=== PATIENT | female | born 1955 | race Caucasian/White ===

== ENCOUNTER 2020-02-12 16:50 | Inpatient (IN) | payer MEDICARE, OTHER ==
[~2020-02-12] VITALS: Ht 162.6 cm; Wt 62.1 kg
[2020-02-12] MEDS ORDERED: LORAZEPAM 1 MG TABLET PO PRN (17:30)
[2020-02-12] MEDS ORDERED: ACETAMINOPHEN 325 MG TABLET PO PRN (17:30)
[2020-02-12] MEDS ORDERED: MAGNESIUM HYDROXIDE 30 ML LIQUID UDC PO PRN ×2 (17:30→18:45)
--- NOTE | 2020-02-12 17:47 | NUR ---
pt transfered to [facility] in stable condition.
[2020-02-12 18:00] VITALS: BP 144/77
[2020-02-12] MEDS ORDERED: MAGN400O6 PO (18:07)
[2020-02-12] MEDS ORDERED: LISI-603 PO (18:07)
[2020-02-12] MEDS ORDERED: AMLO10TA7 PO (18:07)
[2020-02-12] MEDS ORDERED: ALPR1TAB2 PO (18:07)
[2020-02-12] MEDS ORDERED: NICO-672 TD (18:07)
[2020-02-12] MEDS ORDERED: MORP30TA59 PO (18:07)
[2020-02-12] MEDS ORDERED: PENT400T17 PO (18:07)
[2020-02-12] MEDS ORDERED: MELO-107 PO (18:07)
[2020-02-12] MEDS ORDERED: ZOLP5TAB8 PO (18:07)
[2020-02-12] MEDS ORDERED: INSU100V10 SQ (18:07)
[2020-02-12] MEDS ORDERED: DOXE50CA4 PO (18:07)
[2020-02-12] MEDS ORDERED: MORP15TA7 PO (18:07)
[2020-02-12] MEDS ORDERED: CYCL5TAB PO (18:07)
[2020-02-12] MEDS ORDERED: LORA-259 PO (18:07)
[2020-02-12] MEDS ORDERED: AMIT25TA9 PO (18:07)
[2020-02-12] MEDS ORDERED: FURO40TA5 PO (18:07)
--- NOTE | 2020-02-12 18:25 | NUR ---
ADMITTING THIS 64Y F PATIENT BROUGHT IN BY ER NURSE VIA WHEELCHAIR, PATIENT APPEARS TO HAVE FLAT AFFECT HOWEVER COOPERATES WITH THE ADMISSION, PATIENT MINIMIZES HER SYMPTOMS, PATIENT HAS A VALID HOLD FOR DTS UP ON FEB 14, 235, PATIENT WAS ADVISED ON HER HOLD, ORIENTED ON THE UNIT POLICY AND WAS ASSISTED TO HER ROOM, ON FACE TO FACE EVAL, PATIENT APPEARS DEPRESS, FLAT AFFECT, CALLED AND SPOKE WITH DR. TIMMONS WITH ORDERS MADE AND CARRIED OUT, WILL CONTINUE MONITOR
[2020-02-12] MEDS ORDERED: DEXTROSE 50% 50 ML DISP.SYRIN IV PRN (18:45)
[2020-02-12 20:34] VITALS: BP 145/76
[2020-02-12] MEDS ORDERED: MORPHINE SULFATE SR 15 MG TABLET.SA PO SCH (21:00)
[2020-02-12] MEDS: BLOOD SUGAR DIAGNOSTIC 1 EACH STRIP VI SCH (21:06)
[2020-02-12] MEDS: AMITRIPTYLINE HCL 25 MG TABLET PO SCH (21:08)
[2020-02-12] MEDS: INSULIN REGULAR, HUMAN 300 UNIT/3 ML VIAL SQ PRN (21:08)
[2020-02-13 07:01] LABS: CREATININE 0.9 mg/dL (0.6-1.3); POTASSIUM 4.4 mmol/L (3.5-5.1)
[2020-02-13] MEDS: BLOOD SUGAR DIAGNOSTIC 1 EACH STRIP VI SCH ×4 (08:20→21:18)
[2020-02-13 08:46] VITALS: BP 148/78
[2020-02-13] MEDS ORDERED: NICOTINE 14 MG/24HR PATCH TD SCH (09:00)
[2020-02-13] MEDS: FUROSEMIDE 40 MG TABLET PO SCH (09:30)
[2020-02-13] MEDS: LISINOPRIL 20 MG TABLET PO SCH (09:30)
[2020-02-13] MEDS: DULOXETINE 30 MG CAPSULE.DR PO SCH (09:30)
[2020-02-13] MEDS: AMLODIPINE 10 MG TABLET PO SCH (09:30)
[2020-02-13] MEDS: PENTOXIFYLLINE 400 MG TABLET.SA PO SCH ×3 (09:30→16:41)
[2020-02-13] MEDS: NICOTINE 14 MG/24HR PATCH TD SCH (09:31)
[2020-02-13] MEDS: MELOXICAM 7.5 MG TABLET PO SCH (09:32)
--- NOTE | 2020-02-13 10:30 | NUR ---
Gps/Template Clerk- Pacing around back and forth the hallway, complained of lower back pain, encouraged to rest in bed. Making her needs known to the staff.
[2020-02-13] MEDS: MORPHINE SULFATE IR 30 MG TABLET PO PRN ×2 (10:51→21:18)
--- NOTE | 2020-02-13 10:57 | NUR ---
CHRISTOPHER Initial Discharge Plan: Patient lives at home by herself, [address], [place] [address] ([phone]). Patient has a friend Gale ([phone]) who is involved in her care. Patient would like to go home at time of discharge. CHRISTOPHER will continue to work with patient, family, and MD to ensure a safe and proper discharge plan.
--- NOTE | 2020-02-13 10:58 | NUR ---
CHRISTOPHER Family Contact: CHRISTOPHER called patient's friend Gale ([phone]) who is involved in her care to collected collateral information however no answer and left a message for a return call.
--- NOTE | 2020-02-13 11:49 | NUR ---
Firearms Report: Assistant Operator completed and submitted a [employer] firearms report for 5150 danger to herself certification. A copy of report has been placed in patient chart.
[2020-02-13 12:50] LABS: *BILIRUBIN,URIN NEGATIVE (NEGATIVE); *BLOOD, URINE NEGATIVE (NEGATIVE); *CLARITY,URINE SLIGHTLY CLOUDY (CLEAR); *COLOR,URINE YELLOW (YELLOW); *KETONES,URINE NEGATIVE (NEGATIVE); *UROBILINOGEN,URINE 0.2 E.U./dl (NORMAL); LEUKOCYTE ESTERASE ,URINE TRACE (NEGATIVE); NITRITE, URINE NEGATIVE (NEGATIVE); UGLUCOSE NEGATIVE (NEGATIVE)
--- NOTE | 2020-02-13 14:20 | NUR ---
CHRISTOPHER Family Contact: SW spoke with patient's friend Gale ([phone]) who is involved in her care and collected collateral information. Gale state that she is the patient's friend and her caregiver through [facility] and she lives [address]. Gale helps the patient with her doctor's appointments, grocery shopping, etc. Gale stated she will curing pickling packer the patient and take her home at time of discharge.
[2020-02-13 15:00] VITALS: BP 128/76
[2020-02-13] MEDS: HALOPERIDOL 2 MG TABLET PO SCH (16:41)
[2020-02-13 16:46] LABS: BACTERIA,URINE FEW /HPF (NONE SEEN); RBC,URINE 0-3 /HPF (0-3); SQUAMOUS EPITHELIAL CELL,UR FEW /HPF (NONE SEEN)
[2020-02-13] MEDS: INSULIN REGULAR, HUMAN 300 UNIT/3 ML VIAL SQ PRN (17:14)
--- NOTE | 2020-02-13 18:01 | NUR ---
Gps/Vp Organizational Development-Complained of lower back pain, offered tylenol 650 mg, po ,refused, pt claimed not good for her liver. Pain level tolerable , will wait for next dose of morphine per pt.
[2020-02-13 20:00] VITALS: BP 122/71
[2020-02-13] MEDS: AMITRIPTYLINE HCL 25 MG TABLET PO SCH (21:17)
[2020-02-13] MEDS: TEMAZEPAM 7.5 MG CAPSULE PO PRN (23:08)
[2020-02-14] MEDS: BLOOD SUGAR DIAGNOSTIC 1 EACH STRIP VI SCH ×4 (06:03→20:11)
--- NOTE | 2020-02-14 06:12 | NUR ---
Patient slept on and off last night. At one point patient asked to sleep in Erendira chair because the roommate was "Snoring like a freight train going up a hill". Many requests made for pain medications during the shift. Drug seeking behavior noted. No acute pain or distress at this time. Continuing to monitor.
[2020-02-14 07:30] VITALS: BP 118/64
[2020-02-14] MEDS: HALOPERIDOL 2 MG TABLET PO SCH ×2 (09:14→16:51)
[2020-02-14] MEDS: DULOXETINE 30 MG CAPSULE.DR PO SCH (09:14)
[2020-02-14] MEDS: LISINOPRIL 20 MG TABLET PO SCH (09:14)
[2020-02-14] MEDS: FUROSEMIDE 40 MG TABLET PO SCH (09:15)
[2020-02-14] MEDS: PENTOXIFYLLINE 400 MG TABLET.SA PO SCH ×3 (09:15→16:51)
[2020-02-14] MEDS: AMLODIPINE 10 MG TABLET PO SCH (09:15)
[2020-02-14] MEDS: MELOXICAM 7.5 MG TABLET PO SCH (09:15)
[2020-02-14] MEDS: NICOTINE 14 MG/24HR PATCH TD SCH (09:16)
[2020-02-14] MEDS: MORPHINE SULFATE IR 30 MG TABLET PO PRN (11:18)
[2020-02-14] MEDS: INSULIN REGULAR, HUMAN 300 UNIT/3 ML VIAL SQ PRN ×2 (11:22→16:50)
[2020-02-14] MEDS: CEphaleXIN 500 MG CAPSULE PO SCH ×2 (11:26→20:25)
--- NOTE | 2020-02-14 14:40 | NUR ---
CHRISTOPHER Family Contact: SW received a call from patient's friend Gale ([phone]) who had questions about the PC Hearing process. She also mentioned that she arranged for granddaughter to live with the patient in her apartment to help take care of her and the landlord is okay with it.
[2020-02-14 16:00] VITALS: BP 124/68
[2020-02-14] MEDS: AMITRIPTYLINE HCL 25 MG TABLET PO SCH (20:01)
[2020-02-14 20:11] VITALS: BP 116/63
[2020-02-15] MEDS: MORPHINE SULFATE IR 30 MG TABLET PO PRN (03:48)
[2020-02-15] MEDS: BLOOD SUGAR DIAGNOSTIC 1 EACH STRIP VI SCH ×4 (06:33→20:20)
[2020-02-15 07:30] VITALS: BP 131/67
[2020-02-15] MEDS: CEphaleXIN 500 MG CAPSULE PO SCH ×2 (08:49→16:41)
[2020-02-15] MEDS: DULOXETINE 30 MG CAPSULE.DR PO SCH (08:49)
[2020-02-15] MEDS: HALOPERIDOL 2 MG TABLET PO SCH ×2 (08:49→16:41)
[2020-02-15] MEDS: MELOXICAM 7.5 MG TABLET PO SCH (08:50)
[2020-02-15] MEDS: FUROSEMIDE 40 MG TABLET PO SCH (08:50)
[2020-02-15] MEDS: AMLODIPINE 10 MG TABLET PO SCH (08:51)
[2020-02-15] MEDS: LISINOPRIL 20 MG TABLET PO SCH (08:51)
[2020-02-15] MEDS: PENTOXIFYLLINE 400 MG TABLET.SA PO SCH ×3 (08:52→16:42)
[2020-02-15] MEDS: NICOTINE 14 MG/24HR PATCH TD SCH (08:52)
[2020-02-15] MEDS: INSULIN REGULAR, HUMAN 300 UNITS/3 ML VIAL SQ PRN (08:54)
[2020-02-15 16:00] VITALS: BP 98/60
[2020-02-15] MEDS: INSULIN REGULAR, HUMAN 300 UNIT/3 ML VIAL SQ PRN (17:29)
[2020-02-15] MEDS: AMITRIPTYLINE HCL 25 MG TABLET PO SCH (20:14)
[2020-02-15 20:31] VITALS: BP 123/59
[2020-02-16] MEDS: MORPHINE SULFATE IR 30 MG TABLET PO PRN ×2 (00:09→20:05)
[2020-02-16] MEDS: BLOOD SUGAR DIAGNOSTIC 1 EACH STRIP VI SCH ×4 (06:17→20:05)
--- NOTE | 2020-02-16 06:22 | NUR ---
GPS/RN: SLEPT 4.0 HOURS. Medicated once with Morphine with relief. No further complaint presented. FBS 139mg/dl. Denies any s/s of hypo/hyperglycemia.
[2020-02-16 07:30] VITALS: BP 123/68
[2020-02-16] MEDS: MELOXICAM 7.5 MG TABLET PO SCH (08:52)
[2020-02-16] MEDS: FUROSEMIDE 40 MG TABLET PO SCH (08:52)
[2020-02-16] MEDS: NICOTINE 14 MG/24HR PATCH TD SCH (08:52)
[2020-02-16] MEDS: DULOXETINE 30 MG CAPSULE.DR PO SCH (08:53)
[2020-02-16] MEDS: AMLODIPINE 10 MG TABLET PO SCH (08:53)
[2020-02-16] MEDS: PENTOXIFYLLINE 400 MG TABLET.SA PO SCH ×3 (08:53→17:03)
[2020-02-16] MEDS: HALOPERIDOL 2 MG TABLET PO SCH ×2 (08:53→17:02)
[2020-02-16] MEDS: LISINOPRIL 20 MG TABLET PO SCH (08:53)
[2020-02-16] MEDS: CEphaleXIN 500 MG CAPSULE PO SCH ×2 (08:54→17:02)
[2020-02-16] MEDS: INSULIN REGULAR, HUMAN 300 UNIT/3 ML VIAL SQ PRN ×2 (12:34→20:16)
[2020-02-16 17:05] VITALS: BP 136/63
[2020-02-16 20:30] VITALS: BP 133/66
[2020-02-16] MEDS: AMITRIPTYLINE HCL 25 MG TABLET PO SCH (20:36)
[2020-02-16] MEDS: TEMAZEPAM 7.5 MG CAPSULE PO PRN (21:50)
[2020-02-16] MEDS: MAG HYDROX/AL HYDROX/SIMETH 30 ML LIQUID UDC PO PRN ×2 (21:59→22:07)
[2020-02-17] MEDS ORDERED: CLONAZEPAM 0.5 MG TABLET PO ONE (01:00)
[2020-02-17] MEDS: BLOOD SUGAR DIAGNOSTIC 1 EACH STRIP VI SCH ×4 (06:15→21:30)
[2020-02-17 07:30] VITALS: BP 121/64
[2020-02-17] MEDS: CEphaleXIN 500 MG CAPSULE PO SCH ×2 (08:31→17:31)
[2020-02-17] MEDS: AMLODIPINE 10 MG TABLET PO SCH (08:31)
[2020-02-17] MEDS: MELOXICAM 7.5 MG TABLET PO SCH (08:31)
[2020-02-17] MEDS: NICOTINE 14 MG/24HR PATCH TD SCH (08:31)
[2020-02-17] MEDS: HALOPERIDOL 2 MG TABLET PO SCH ×2 (08:32→17:31)
[2020-02-17] MEDS: PENTOXIFYLLINE 400 MG TABLET.SA PO SCH ×3 (08:32→17:31)
[2020-02-17] MEDS: LISINOPRIL 20 MG TABLET PO SCH (08:32)
[2020-02-17] MEDS: FUROSEMIDE 40 MG TABLET PO SCH (08:32)
[2020-02-17] MEDS: DULOXETINE 30 MG CAPSULE.DR PO SCH (08:33)
[2020-02-17 15:59] VITALS: BP 145/70
--- NOTE | 2020-02-17 16:07 | NUR ---
CHRISTOPHER Collateral Contact: CHRISTOPHER received a call from patient's friend Gale ([phone]) who had questions about the PC Hearing process. CHRISTOPHER explained the process and clarified questions friend had regarding pts 14 day hold. CHRISTOPHER informed her that at this a PC hearing has not been scheduled for pt.
[2020-02-17 20:22] VITALS: BP 128/64
[2020-02-17] MEDS: LORAZEPAM 1 MG TABLET PO PRN (20:51)
[2020-02-17] MEDS: AMITRIPTYLINE HCL 25 MG TABLET PO SCH (20:52)
[2020-02-17] MEDS: INSULIN REGULAR, HUMAN 300 UNIT/3 ML VIAL SQ PRN (21:33)
[2020-02-17] MEDS: TEMAZEPAM 7.5 MG CAPSULE PO PRN (23:47)
[2020-02-18] MEDS: MORPHINE SULFATE IR 30 MG TABLET PO PRN ×2 (04:12→21:23)
[2020-02-18] MEDS: BLOOD SUGAR DIAGNOSTIC 1 EACH STRIP VI SCH ×4 (06:37→20:32)
[2020-02-18] MEDS: LISINOPRIL 20 MG TABLET PO SCH (08:57)
[2020-02-18] MEDS: CEphaleXIN 500 MG CAPSULE PO SCH ×2 (08:57→16:50)
[2020-02-18] MEDS: NICOTINE 14 MG/24HR PATCH TD SCH (08:57)
[2020-02-18] MEDS: AMLODIPINE 10 MG TABLET PO SCH (08:57)
[2020-02-18] MEDS: PENTOXIFYLLINE 400 MG TABLET.SA PO SCH ×3 (08:58→16:49)
[2020-02-18] MEDS: FUROSEMIDE 40 MG TABLET PO SCH (08:58)
[2020-02-18] MEDS: MELOXICAM 7.5 MG TABLET PO SCH (08:58)
[2020-02-18] MEDS: SERTRALINE HCL 50 MG TABLET PO SCH (09:32)
[2020-02-18 10:51] VITALS: BP 149/73
[2020-02-18] MEDS: INSULIN REGULAR, HUMAN 300 UNIT/3 ML VIAL SQ PRN ×2 (12:27→16:52)
[2020-02-18 16:38] VITALS: BP 101/59
--- NOTE | 2020-02-18 20:00 | NUR ---
Received patient in the day room. she is noted A/O x 3 able to ambulate with steady gait and unable to verbalized feelings. pt noted calm and pleasant upon approached. Mood is low, affect is Bunted. Upon interview, pt denied SI/HI/VH/AH. she is able to CFS. Pt is reassured for her safety. safety and fall precaution in place. v/s stable, Will continue to monitor.
[2020-02-18 20:12] VITALS: BP 101/61
[2020-02-18] MEDS: OLANZAPINE 5 MG TABLET PO SCH (20:28)
[2020-02-18] MEDS: AMITRIPTYLINE HCL 25 MG TABLET PO SCH (20:30)
[2020-02-18] MEDS: TEMAZEPAM 7.5 MG CAPSULE PO PRN (22:28)
[2020-02-19] MEDS: BLOOD SUGAR DIAGNOSTIC 1 EACH STRIP VI SCH ×4 (06:59→20:09)
[2020-02-19 07:30] VITALS: BP 156/63
[2020-02-19 07:48] LABS: BASOPHILS # (AUTO) 0.1 K/uL (0.0-8.0); BASOPHILS % (AUTO) 1.2 % (0.0-2.0); EOSINOPHILS # (AUTO) 0.2 K/uL (0.0-0.7); EOSINOPHILS % (AUTO) 2.6 % (0.0-7.0); HEMATOCRIT 41.5 % (31.2-41.9); LYMPHOCYTES # (AUTO) 2.6 K/uL (20.0-40.0); LYMPHOCYTES % (AUTO) 27.5 % (20.5-51.5); MEAN CORPUSCULAR HEMOGLOBIN 31.7 uug (24.7-32.8); MEAN CORPUSCULAR HGB CONC 36 g/dL (32.3-35.6); MEAN CORPUSCULAR VOLUME 87.9 fL (75.5-95.3); MONOCYTES # (AUTO) 0.6 K/uL (2.0-10.0); MONOCYTES % (AUTO) 6.5 % (0.0-11.0); NEUTROPHILS # (AUTO) 5.8 K/uL (1.8-8.9); NEUTROPHILS % (AUTO) 62.2 % (38.5-71.5); PLATELET COUNT (AUTO) 154 K/uL (179-408); RED BLOOD CELL COUNT(AUTO) 4.73 MIL/uL (3.63-4.92); WHITE BLOOD COUNT (AUTO) 9.4 K/uL (3.8-11.8)
[2020-02-19 07:53] LABS: BILIRUBIN,TOTAL 0.6 mg/dL (0.2-1.0); CREATININE 0.9 mg/dL (0.6-1.3); MAGNESIUM 2.2 mg/dL (1.8-2.4); PHOSPHOROUS 3.4 mg/dL (2.5-4.9); TOTAL PROTEIN, SERUM 7.7 g/dL (6.4-8.2)
--- NOTE | 2020-02-19 08:46 | NUR ---
SW Collateral Contact: SW received a call from patient's friend Gale ([phone]) who had questions about the PC Hearing, SW informed her that pts 14 day hold was upheld and pt will be discharged once MD feels pt is stable. Friend agreed with treatment plan.
[2020-02-19] MEDS: CEphaleXIN 500 MG CAPSULE PO SCH (09:24)
[2020-02-19] MEDS: SERTRALINE HCL 50 MG TABLET PO SCH (09:25)
[2020-02-19] MEDS: LISINOPRIL 20 MG TABLET PO SCH (09:25)
[2020-02-19] MEDS: FUROSEMIDE 40 MG TABLET PO SCH (09:25)
[2020-02-19] MEDS: AMLODIPINE 10 MG TABLET PO SCH (09:25)
[2020-02-19] MEDS: MELOXICAM 7.5 MG TABLET PO SCH (09:26)
[2020-02-19] MEDS: PENTOXIFYLLINE 400 MG TABLET.SA PO SCH ×4 (09:26→17:22)
--- NOTE | 2020-02-19 09:26 | NUR ---
CHRISTOPHER Collateral Contact: CHRISTOPHER called patient's friend Gale ([phone]) to inform her pt will be discharged on Monday02/21/20. Gale stated she will be coming to pick pt up at 9:00am.
[2020-02-19] MEDS: NICOTINE 14 MG/24HR PATCH TD SCH (09:27)
[2020-02-19] MEDS: INSULIN REGULAR, HUMAN 300 UNIT/3 ML VIAL SQ PRN ×3 (09:31→17:23)
[2020-02-19 16:00] VITALS: BP 149/69
[2020-02-19] MEDS ORDERED: IBUPROFEN 200 MG TABLET PO PRN (18:30)
[2020-02-19] MEDS: MORPHINE SULFATE IR 30 MG TABLET PO PRN (20:06)
[2020-02-19 20:12] VITALS: BP 135/60
[2020-02-19] MEDS: OLANZAPINE 5 MG TABLET PO SCH (20:55)
[2020-02-19] MEDS: INSULIN REGULAR, HUMAN 300 UNITS/3 ML VIAL SQ PRN (20:55)
[2020-02-19] MEDS: AMITRIPTYLINE HCL 25 MG TABLET PO SCH (20:56)
[2020-02-20] MEDS: TEMAZEPAM 7.5 MG CAPSULE PO PRN ×2 (01:44→21:49)
[2020-02-20] MEDS: BLOOD SUGAR DIAGNOSTIC 1 EACH STRIP VI SCH ×4 (06:39→20:20)
[2020-02-20 07:30] VITALS: BP 113/56
[2020-02-20] MEDS: FUROSEMIDE 40 MG TABLET PO SCH (09:03)
[2020-02-20] MEDS: PENTOXIFYLLINE 400 MG TABLET.SA PO SCH ×3 (09:03→17:23)
[2020-02-20] MEDS: MELOXICAM 7.5 MG TABLET PO SCH (09:04)
[2020-02-20] MEDS: LISINOPRIL 20 MG TABLET PO SCH (09:05)
[2020-02-20] MEDS: AMLODIPINE 10 MG TABLET PO SCH (09:05)
[2020-02-20] MEDS: SERTRALINE HCL 50 MG TABLET PO SCH (09:05)
[2020-02-20] MEDS: NICOTINE 14 MG/24HR PATCH TD SCH (09:05)
[2020-02-20] MEDS: INSULIN REGULAR, HUMAN 300 UNIT/3 ML VIAL SQ PRN (09:11)
[2020-02-20 09:16] LABS: MAGNESIUM 2.1 mg/dL (1.8-2.4); POTASSIUM 4.6 mmol/L (3.5-5.1)
--- NOTE | 2020-02-20 09:46 | NUR ---
CHRISTOPHER DISCHARGE NOTE FOR Monday02/21/20: Pt will be discharged via private vehicle at 9:00am home [address], [place] [address]. Pts Friend/Mens Locker Room Attendant, Gale ([phone]) is involved in her care and will sweet pickled fruit maker upon discharge. Pts is ambulatory, appropriately dressed and groomed, and alert and oriented x3. Pt denies visual/auditory hallucinations and denies suicidal/homicidal ideation. Pts mood is anxious with congruent affect. Pt will follow up with psychiatrist: Dr. Vijay Verdugo [address], [place] [address] ([phone]) on Monday02/26/20 at 11:00am. Pt will also follow up with Primary Physician: Dr. Caryl Beaver [facility] [address] [place] [address] ([phone]) on Monday03/09/20 at 9:00am. The multidisciplinary exit care form was done, printed, signed, and given to the patient. Addendum: 02/21/20 at 0835 by CHRISTOPHER HIGGINS CHRISTOPHER called pts Friend/Mens Locker Room Attendant, Gale ([phone]), and she stated that she will be picking the pt up at 1PM.
[2020-02-20 10:25] LABS: URIC ACID 5.5 mg/dL (2.6-6.0)
[2020-02-20 11:30] LABS: THYROID STIMULATING HORMONE 3.257 mIU/mL (0.358-3.740)
--- NOTE | 2020-02-20 15:55 | NUR ---
Gps/Reimbursement Manager- Patient scheduled for discharge tomorrow @ 0900 .Friend/remarketing manager , Gale )will transport patient to her home in [place], [place].
[2020-02-20] MEDS: MORPHINE SULFATE IR 30 MG TABLET PO PRN (16:09)
[2020-02-20 16:30] VITALS: BP 98/59
--- NOTE | 2020-02-20 16:31 | NUR ---
Gps/Body Bumper- Patient verbalized feelings of being unsteady when she walks after prn med. administrations, claimed she was given Zyprexa instead , showed to patient wrapper of the MS med. and the 1/2 of pill wasted with Lynne Tidwell.. Instructed patient to stay in bed, not wandering around if feeling unsteady. Patient appeared to be parnoid and suspicious about her meds. . Reviewed with patient.
[2020-02-20] MEDS: AMITRIPTYLINE HCL 25 MG TABLET PO SCH (20:21)
[2020-02-20] MEDS: OLANZAPINE 5 MG TABLET PO SCH (20:21)
[2020-02-20] MEDS: INSULIN REGULAR, HUMAN 300 UNITS/3 ML VIAL SQ PRN (20:23)
[2020-02-21] MEDS: LORAZEPAM 1 MG TABLET PO PRN (05:34)
[2020-02-21] MEDS: BLOOD SUGAR DIAGNOSTIC 1 EACH STRIP VI SCH ×2 (05:56→12:10)
[2020-02-21 07:04] LABS: BASOPHILS % (AUTO) 0.4 % (0.0-2.0); EOSINOPHILS # (AUTO) 0.2 K/uL (0.0-0.7); EOSINOPHILS % (AUTO) 2.2 % (0.0-7.0); HEMATOCRIT 39.7 % (31.2-41.9); HEMOGLOBIN 13.9 g/dL (10.9-14.3); LYMPHOCYTES # (AUTO) 1.3 K/uL (20.0-40.0); LYMPHOCYTES % (AUTO) 15.6 % (20.5-51.5); MEAN CORPUSCULAR HEMOGLOBIN 31.2 uug (24.7-32.8); MEAN CORPUSCULAR HGB CONC 35 g/dL (32.3-35.6); MEAN CORPUSCULAR VOLUME 89.1 fL (75.5-95.3); MONOCYTES # (AUTO) 0.7 K/uL (2.0-10.0); NEUTROPHILS % (AUTO) 73.8 % (38.5-71.5); PLATELET COUNT (AUTO) 128 K/uL (179-408); RED BLOOD CELL COUNT(AUTO) 4.45 MIL/uL (3.63-4.92); WHITE BLOOD COUNT (AUTO) 8.2 K/uL (3.8-11.8)
[2020-02-21 07:15] LABS: CREATININE 0.8 mg/dL (0.6-1.3); POTASSIUM 4.2 mmol/L (3.5-5.1)
[2020-02-21 07:30] VITALS: BP 144/77
[2020-02-21 08:06] VITALS: BP 121/60
[2020-02-21] MEDS: MELOXICAM 7.5 MG TABLET PO SCH (08:06)
[2020-02-21] MEDS: AMLODIPINE 10 MG TABLET PO SCH (08:06)
[2020-02-21] MEDS: SERTRALINE HCL 50 MG TABLET PO SCH (08:06)
[2020-02-21] MEDS: FUROSEMIDE 40 MG TABLET PO SCH (08:06)
[2020-02-21] MEDS: LISINOPRIL 20 MG TABLET PO SCH (08:06)
[2020-02-21] MEDS: PENTOXIFYLLINE 400 MG TABLET.SA PO SCH ×2 (08:06→12:31)
[2020-02-21] MEDS: NICOTINE 14 MG/24HR PATCH TD SCH (08:07)
--- NOTE | 2020-02-21 08:30 | NUR ---
PT STATES HER FRIEND/CAREGIVER WILL BE LEAVING THE HOUSE AT 9AM, AND WILL BE AT HOSPITAL TO PICK HER UP AT APPROXIMATELY 1PM FROM [place], WHERE PT LIVES.
--- NOTE | 2020-02-21 08:44 | NUR ---
CALLED IN PSYCHIATRIC PRESCRIPTIONS TO [facility] [address] [place]. . SPOKE WITH KEIKO
[2020-02-21] MEDS: MORPHINE SULFATE IR 30 MG TABLET PO PRN (11:16)
[2020-02-21] MEDS: INSULIN REGULAR, HUMAN 300 UNIT/3 ML VIAL SQ PRN (12:25)
--- NOTE | 2020-02-21 14:01 | NUR ---
Gps/Nail Expert- Reviewed discharged instructions, reviewed, prescriptions, medications, diet, safety, skin care , follow up with Psychiatrist Dr Vijay Verdugo on 02/26/20 at 11:00 am follow up with Primary Medical Doctor Caryl Beaver y 03/09/20 at 0900 am., patient verbalized understanding. All belongings given back to patient. Waiting for Susie (Caregiver )to transport pt. home. patient in good spirit with no new c/o offered.
--- NOTE | 2020-02-21 14:27 | NUR ---
Gps/Plush Dresser-Susie in to orange picker patient , all belongings given back to patient . Discharged to home via private car, patient in good spirit with no new complaints noted
== END 2020-02-21 14:30 | disposition home or self-care (01) | DRG 885 ==
LOC: ER 16:50 → GPS 17:24
PROVIDERS: ADMIT Psychiatry & Neurology Psychiatry; ATTEND Registered Nurse
DX: F39 Unspecified mood [affective] disorder (principal); B19.20 Unspecified viral hepatitis C without hepatic coma; F23 Brief psychotic disorder; R45.851 Suicidal ideations; N39.0 Urinary tract infection, site not specified; E22.2 Syndrome of inappropriate secretion of antidiuretic hormone; K74.69 Other cirrhosis of liver; T65.92XD Toxic effect of unspecified substance, intentional self-harm, subsequent encounter; F17.210 Nicotine dependence, cigarettes, uncomplicated; E11.9 Type 2 diabetes mellitus without complications; F41.9 Anxiety disorder, unspecified; K21.9 Gastro-esophageal reflux disease without esophagitis; I10 Essential (primary) hypertension; Z79.4 Long term (current) use of insulin; F10.21 Alcohol dependence, in remission; F31.9 Bipolar disorder, unspecified; F19.10 Other psychoactive substance abuse, uncomplicated; F31.30 Bipolar disorder, current episode depressed, mild or moderate severity, unspecified; E86.1 Hypovolemia; G89.29 Other chronic pain
CPT/HCPCS: 36415; 83735; 84100; 84443; 84550; 85025; A4663; J1815